=== PATIENT | male | born 1990 | race Caucasian/White ===

== ENCOUNTER 2017-01-31 20:43 | Inpatient (IN) | payer MEDICAID, OTHER ==
--- NOTE | 2017-01-31 22:24 | ED ---
Psych HPI - General Chief Complaint: Psychiatric Symptoms Stated Complaint: Mental Health Time Seen by Provider: 01/31/17 21:20 Source: patient, RN notes reviewed Mode of arrival: ambulatory - History of Present Illness Initial Comments: Patient is a 26-year-old male with a chief complaint of suicidal ideation and depression for the past few days. Patient states that he wants to take multiple pills and drugs order to allow sleep. Patient states that he's been suffering from depression for the past few years however the past few months of an exceptionally hard. Patient states that his mother has from an overdose in november. Patient reports that a few days ago he did have a back of pills that he was planning to take however they did spell and he was unable to take in order to kill himself. Patient denies any homicidal ideations. He denies any auditory or visual hallucinations. He denies any recent drug or alcohol use. - Related Data Home Medications Medication Instructions Recorded Confirmed Sertraline [Zoloft] 100 mg PO DAILY 10/30/16 01/31/17 Gabapentin 800 mg PO TID 01/31/17 01/31/17 QUEtiapine XR [SEROquel XR] 600 mg PO HS 01/31/17 01/31/17 QUEtiapine [SEROquel] 25 mg PO BID 01/31/17 01/31/17 Allergies Allergy/AdvReac Type Severity Reaction Status Date / Time No Known Allergies Allergy Verified 01/31/17 21:47 Review of Systems ROS Statement: Those systems with pertinent positive or pertinent negative responses have been documented in the HPI. ROS Other: All systems not noted in ROS Statement are negative. Past Medical History Past Medical History: Asthma, GERD/Reflux, Liver Disease, Seizure Disorder Additional Past Medical History / Comment(s): Bilateral knee pain,djd hepatitis C, seizure a couple weeks ago which aly believes was due to withdrawal, constipation.DRUG OD IN PAST, History of Any Multi-Drug Resistant Organisms: None Reported Past Surgical History: Hernia Repair, Orthopedic Surgery Additional Past Surgical History / Comment(s): R wrist and arm at age 10 and 18 due to fractures, hernia repair as an . Past Anesthesia/Blood Transfusion Reactions: No Reported Reaction Past Psychological History: Anxiety, Bipolar, Depression, Panic Disorder Additional Psychological History / Comment(s): Pt's elvie states that pt has had suicide attempts in the past. He lived with her and their 2 yrs old son until 05/25/16. Aly states she had to ask him to move out due to his polysubstance abuse and at that time he had used heroin and crack. Since leaving the home she states he has been bouncing into mental hospitals and rehab facilities. She states he has past abused benzos, neurontin, seroquel and recently his suboxone for heroin addiction. Smoking Status: Current every day smoker Past Alcohol Use History: None Reported Additional Past Alcohol Use History / Comment(s): Patient is a smoker of one pack per day since he was 16 years of age. He has history of prescription drug abuse, heroin addiction currently on Suboxone. He is single. He has one son that is 2 years old and healthy with no major medical problems. Past Drug Use History: None Reported Additional Drug Use History / Comment(s): Pt has been in rehab facility in past for addictions. - Past Family History Father Additional Family Medical History / Comment(s): Father at age 32 in a motor vehicle accident. He has history of drug abuse. Mother Additional Family Medical History / Comment(s): Mother is alive at age 39 with history of thyroid cancer. Brother(s) Additional Family Medical History / Comment(s): Patient has 3 siblings with no major medical problems. One sibling is in detention. General Exam - General Exam Comments Initial Comments: Pleasant 26-year-old male. No acute distress. Limitations: no limitations General appearance: alert, in no apparent distress Head exam: Present: atraumatic, normocephalic, normal inspection Eye exam: Present: normal appearance, PERRL, EOMI. Absent: scleral icterus, conjunctival injection, periorbital swelling ENT exam: Present: normal exam, mucous membranes moist Neck exam: Present: normal inspection. Absent: tenderness, meningismus, lymphadenopathy Respiratory exam: Present: normal lung sounds bilaterally. Absent: respiratory distress, wheezes, rales, rhonchi, stridor Cardiovascular Exam: Present: regular rate, normal rhythm, normal heart sounds. Absent: systolic murmur, diastolic murmur, rubs, gallop, clicks GI/Abdominal exam: Present: soft, normal bowel sounds. Absent: distended, tenderness, guarding, rebound, rigid Extremities exam: Present: normal inspection, full ROM, normal capillary refill. Absent: tenderness, pedal edema, joint swelling, calf tenderness Back exam: Present: normal inspection Neurological exam: Present: alert, oriented X3, CN II-XII intact Psychiatric exam: Present: normal affect, normal mood Skin exam: Present: warm, dry, intact, normal color. Absent: rash Course Vital Signs 01/31/17 21:13 Temperature 98.1 F Pulse Rate 103 H Respiratory 16 Rate Blood Pressure 137/82 O2 Sat by Pulse 90 L Oximetry Medical Decision Making - Medical Decision Making Patient is a 26-year-old male with a chief complaint of suicidal ideation and depression for the past few days. Patient states that he wants to take multiple pills and drugs order to allow sleep. Patient states that he's been suffering from depression for the past few years however the past few months of an exceptionally hard. Patient states that his mother has from an overdose in November. Patient's urine drug screen is positive for cocaine, TCAs , benzodiazepines. Patient's breath while test is negative. Patient is medically clear this time for EPS evaluation. Patient will be admitted at this time for inpatient psychiatric evaluation. - Lab Data Lab Results 01/31/17 Range/Units 21:25 Urine Opiates Screen Not Detected (NotDetected) Ur Oxycodone Screen Not Detected (NotDetected) Urine Methadone Screen Not Detected (NotDetected) Ur Propoxyphene Screen Not Detected (NotDetected) Ur Barbiturates Screen Not Detected (NotDetected) U Tricyclic Antidepress Detected H (NotDetected) Ur Phencyclidine Scrn Not Detected (NotDetected) Ur Amphetamines Screen Not Detected (NotDetected) U Methamphetamines Scrn Not Detected (NotDetected) U Benzodiazepines Scrn Detected H (NotDetected) Urine Cocaine Screen Detected H (NotDetected) U Marijuana (THC) Screen Detected H (NotDetected) Disposition Clinical Impression: Suicidal ideation, Substance abuse Disposition: HOME SELF-CARE Condition: Stable Time of Disposition: 23:21
[2017-02-01 00:19] VITALS: BMI 27.1
[2017-02-01] MEDS ORDERED: MAGNESIUM HYDROXIDE 2,400 MG/10 ML CUP PO PRN (00:57)
[2017-02-01] MEDS ORDERED: MAG HYDROX/AL HYDROX/SIMETH 30 ML CUP PO PRN (00:57)
[2017-02-01] MEDS ORDERED: QUEtiapine 25 MG TAB PO SCH (09:00)
[2017-02-01] MEDS: GABAPENTIN 400 MG CAP PO SCH ×3 (09:45→20:18)
[2017-02-01] MEDS: NICOTINE 21MG/24HR PATCH TRANSDERM SCH (09:45)
[2017-02-01] MEDS: SERTRALINE 100 MG TAB PO SCH (09:45)
[2017-02-01] MEDS: ACETAMINOPHEN TAB 325 MG TAB PO PRN ×3 (09:46→20:19)
[2017-02-01 09:51] LABS: Basophils % (A) 0 %; CH 29.7; Eosinophils # (A) 0.3 k/uL (0-0.7); Eosinophils % (A) 4 %; HCT 45.2 % (39.0-53.0); HGB 14.8 gm/dL (13.0-17.5); Luc # (Auto) 0.15; Luc % (Auto) 2; Lymphocytes # (A) 0.9 k/uL (1.0-4.8); Lymphocytes % (A) 12 %; MCH 29.6 pg (25.0-35.0); MCHC 32.7 g/dL (31.0-37.0); MCV 90.6 fL (80.0-100.0); Mean Platelet Volume 6.7; Monocytes # (A) 0.4 k/uL (0-1.0); Monocytes % (A) 5 %; Neutrophils # (A) 5.6 k/uL (1.3-7.7); Neutrophils % (A) 77 %; RDW 14.3 % (11.5-15.5); WBC 7.3 k/uL (3.8-10.6); WBC (Perox) 7.93
[2017-02-01 10:07] LABS: ALT 223 U/L (21-72); AST 123 U/L (17-59); Alkaline Phosphatase 90 U/L (38-126); Anion Gap 10 mmol/L; Blood Urea Nitrogen 14 mg/dL (9-20); Carbon Dioxide 22 mmol/L (22-30); Chloride 110 mmol/L (98-107); Glucose 92 mg/dL (74-99); Non-African American GFR(MDRD) >60 (>60 ml/min/1.73 sqM); Potassium 4.3 mmol/L (3.5-5.1); Sodium 142 mmol/L (137-145); Total Bilirubin 0.6 mg/dL (0.2-1.3); Total Protein 6.7 g/dL (6.3-8.2)
--- NOTE | 2017-02-01 11:18 | P.HP ---
Psychiatric H&P - . H&P Date: 02/01/17 History & Physical: IDENTIFYING DATA: Mr. Lobo is 26-year-old male known to this unit from prior admissions. HISTORY OF PRESENT ILLNESS: He presented to the ED with complaints of depression and suicidal ideation. He was thinking about overdosing on heroin and prescription medications. He has been feeling more depressed since his girlfriend asked him to leave her home "about a week or so ago. ... She can tell when I'm using. I slipped. I used heroin just one time. She knew and asked me to get out." Since he left his girlfriend's home he has been homeless. He stated that he has slept in his car and spent "couple nights" with friends. He is feeling hopeless and helpless; "I don't want to live. ... I am letting people down. Letting myself down." He talked about his struggle with maintaining abstinence from heroin. An additional stress was the of his mother in November 2016. She had a history of opiate use disorder. She was clean for one year. She used heroin "one time and overdosed." He continues to grieve the of his mother. "We were close. ... My father when I was 14 years old. She raised me and my brothers alone." He also complained of sedation from the daytime dose of Seroquel. He complained of continued anxiety and asked if there was "another medication" to treat his subjective anxiety. I explained that I am reluctant to prescribe him a narcotic medication for treatment of anxiety given his history of abuse. PAST PSYCHIATRIC HISTORY: This is his fourth admission in the last 12 months; the last was in September 2016 when he was transferred from the medical unit following an intentional overdose of Suboxone and clonazepam. Subsequent to his last psychiatric hospitalization he was admitted to the ICU in September 2016 when he presented to the emergency room lethargic. His urine drug screen was positive for opiates, tricyclic antidepressants and benzodiazepines. He recovered with conservative measures. When he became conscious he signed himself out of the hospital AGAINST MEDICAL ADVICE. He first received mental health treatment at age 15. He describes feeling depressed after the of his father from multiple motor vehicle accident. He was admitted to [facility] when he was a teenager. He has a purported history of a bipolar illness but the changes mood are coincident with his abuse of drugs. We referred him to community mental health after his last discharge. He receives psychiatric and case management services. His outpatient medications included Zoloft 100 mg daily, Seroquel XR 600 mg at bedtime and Seroquel 25 mg twice a day. PAST MEDICAL HISTORY: According to the EMR, he has history of asthma, GERD and hepatitis C. ALLERGIES: NO KNOWN DRUG ALLERGIES SUBSTANCE USE HISTORY: . He has a history of abuse heroin, cocaine, crack cocaine, or opioid medications, hallucinogenic's and marijuana. His drugs of choice are heroin and benzodiazepines (particularly Xanax). He denied use of alcohol. He he has participated in several substance abuse treatment programs; the last was at [place] in May 2016. Has been treated with Suboxone and reported abstinence from heroin with Suboxone. He denied participation in a methadone maintenance program. He attends Alcoholics Anonymous between 3 and 5 times per week. He has a sponsor but does not have a home group. His urine drug screen was positive for tricyclic antidepressants, cocaine, benzodiazepines and cannabinoids. He admitted to use of Xanax and marijuana but denied recent use of cocaine. Tobacco use: One pack of cigarettes per day FAMILY PSYCHIATRIC/SUBSTANCE USE HISTORY: His mother had history of opioid use disorder and from an overdose in November 2016. There is a family history of substance use and mood disorders. LEGAL HISTORY: He is not on probation, parole or has pending charges. He denied prior involvement with the legal system. . SOCIAL HISTORY: His born and raised in [place]. He went to school to the 11th grade but obtained his GED. He is not . He has a 2-year-old son. She has 3 brothers. His father when he was 14 years old from a motor vehicle accident. His mother at a history of opiate use disorder and from a heroin overdose in November 2016. 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 He denied a history of physical, emotional or sexual abuse. He is the oldest in a sibship of 3 brothers. One brother is currently in senior living, another brother is at the [facility] for violation of probation and the youngest, age 12, lives with his grandparents. He is currently homeless but believes he may be a return to his girlfriend's home after discharge. MENTAL STATUS EXAM: He presented as a casually groomed well-developed well- nourished male who was pleasant on approach. He made eye contact and appeared to attend to the interview. He had no distinguishing features or prominent physical abnormalities. He had a blunted facial expression. He was alert and oriented to person, place and time. He had psychomotor retardation but no abnormal involuntary movements. His gait was slow but steady. His speech was spontaneous with decreased rate, rhythm and volume. He had no articulation difficulties. His affect was depressed but stable and appropriate. He did not appear restless, anxious or irritable. He denied current suicidal ideation or wishes. He denied homicidal ideation. He expressed depressive cognitions including hopelessness, helplessness and worthlessness. He ruminated about his substance use problems and the consequences of his substance use. He did not express phobias, ideas reference or paranoid ideation. His thinking was abstract and associations were coherent and logical. He denied hallucinations did not appear to be responding to internal stimuli. Global impression of intellect is average. He is aware of his illness and need for mental health treatment. STRENGTHS: Stable employment, supportive family, involved with mental health services, involved with community recovery. WEAKNESSES: Substance use disorder, lack of stable housing . IMPRESSION: He is a 26-year-old single male who has a history of opiate and sedative hypnotic use disorder. He has had multiple psychiatric hospitalization related to substance use disorder, depression and suicidal ideation. He presented to unit with complaints of depression and suicidal ideation in the context of specific stresses. His mother from heroin overdose in November 2016, his girlfriend asked him to leave their home when he relapsed to heroin and he has been homeless since he left his girlfriend's home. She describes thoughts of subjective anxiety, suicide, hopelessness, helplessness and worthlessness. He denies suicidal plan or intent. He should be treated on an inpatient basis with a combination of psychopharmacology and multimodal therapy. PRINCIPLE DIAGNOSIS: Unspecified depressive disorder, rule out a depressive disorder recurrent, opiate use disorder, benzodiazepine use disorder, lack of adequate housing, bereavement RECOMMENDATION: Continue inpatient hospitalization due to depression and suicidal ideation. Suicide precautions with 15 minute checks. Continue Zoloft 100 mg daily and titrated according to clinical response and tolerance. Continue Seroquel XL 600 mg at bedtime. Discontinue Seroquel 25 mg twice a day due to complaints of sedation. Avoid prescription of narcotic medications but particularly opiates and benzodiazepines. Begin a trial of BuSpar 7.5 mg by mouth twice a day and titrated according to therapeutic response and tolerance.. Social work to coordinate family meeting and aftercare services. Encourage participation in therapeutic groups and activities. Evaluate clinical status response to treatment on a daily basis. ALLERGIES Allergy/AdvReac Type Severity Reaction Status Date / Time No Known Allergies Allergy Verified 02/01/17 01:07 Vital Signs Temp 97.0 F L 02/01/17 00:00 Pulse 99 02/01/17 00:00 Resp 16 02/01/17 00:00 BP 125/81 02/01/17 00:00 Pulse Ox 98 01/31/17 23:23 Intake & Output 01/31/17 02/01/17 02/01/17 18:59 06:59 18:59 Weight 93.1 kg Laboratory Last Values Urine Opiates Screen Not Detected (NotDetected) 01/31/17 21:25 Ur Oxycodone Screen Not Detected (NotDetected) 01/31/17 21:25 Urine Methadone Screen Not Detected (NotDetected) 01/31/17 21:25 Ur Propoxyphene Screen Not Detected (NotDetected) 01/31/17 21:25 Ur Barbiturates Screen Not Detected (NotDetected) 01/31/17 21:25 U Tricyclic Antidepress Detected (NotDetected) H 01/31/17 21:25 Ur Phencyclidine Scrn Not Detected (NotDetected) 01/31/17 21:25 Ur Amphetamines Screen Not Detected (NotDetected) 01/31/17 21:25 U Methamphetamines Scrn Not Detected (NotDetected) 01/31/17 21:25 U Benzodiazepines Scrn Detected (NotDetected) H 01/31/17 21:25 Urine Cocaine Screen Detected (NotDetected) H 01/31/17 21:25 U Marijuana (THC) Screen Detected (NotDetected) H 01/31/17 21:25 02/01/17 08:11 02/01/17 09:43 02/01/17 10:34 02/01/17 11:11
--- NOTE | 2017-02-01 12:42 | P.CONS ---
History of Present Illness - Reason for Consult Consult date: 02/01/17 Medical management - History of Present Illness This is a 26-year-old male. He does not have a primary care physician. He has a past medical history for anxiety, bipolar, panic disorder, tobacco use and dependence, drug abuse. Patient states that he is a heroin addict and he started doing heroin with his mom and his mom recently from a drug overdose. He states he has been clean but is relapsed.he states he uses cocaine on Saturday by starting. He states he has not used alcohol long time. He is feeling very anxious and jittery. Urine drug screen was positive for tricyclic antidepressants, benzodiazepines, cocaine and marijuana. Review of Systems All systems: negative Constitutional: Denies chills, Denies fever Eyes: denies blurred vision, denies pain Ears, nose, mouth and throat: Denies headache, Denies sore throat Cardiovascular: Denies chest pain, Denies shortness of breath Respiratory: Denies cough Gastrointestinal: Denies abdominal pain, Denies diarrhea, Denies nausea, Denies vomiting Musculoskeletal: Denies myalgias Integumentary: Denies pruritus, Denies rash Neurological: Denies numbness, Denies weakness Psychiatric: Reports anxiety, Reports depression Endocrine: Denies fatigue, Denies weight change Past Medical History Past Medical History: Asthma, GERD/Reflux, Liver Disease, Seizure Disorder Additional Past Medical History / Comment(s): Bilateral knee pain,djd hepatitis C, seizure a couple weeks ago which aly believes was due to withdrawal, constipation.DRUG OD IN PAST, History of Any Multi-Drug Resistant Organisms: None Reported Past Surgical History: Hernia Repair, Orthopedic Surgery Additional Past Surgical History / Comment(s): R wrist and arm at age 10 and 18 due to fractures, hernia repair as an infant. Past Anesthesia/Blood Transfusion Reactions: No Reported Reaction Past Psychological History: Anxiety, Bipolar, Depression, Panic Disorder Additional Psychological History / Comment(s): Pt's aly states that pt has had suicide attempts in the past. He lived with her and their 2 yrs old son until 05/25/16. Aly states she had to ask him to move out due to his polysubstance abuse and at that time he had used heroin and crack. Since leaving the home she states he has been bouncing into mental hospitals and rehab facilities. She states he has past abused benzos, neurontin, seroquel and recently his suboxone for heroin addiction. Smoking Status: Current every day smoker Past Alcohol Use History: None Reported Additional Past Alcohol Use History / Comment(s): Patient is a smoker of one pack per day since he was 16 years of age. He has history of prescription drug abuse, heroin addiction no longer on Suboxone. He is single. He has one son that is 2 years old and healthy with no major medical problems. Past Drug Use History: None Reported Additional Drug Use History / Comment(s): Pt has been in rehab facility in past for addictions. - Past Family History Father Additional Family Medical History / Comment(s): Father at age 32 in a motor vehicle accident. He has history of drug abuse. Mother Additional Family Medical History / Comment(s): Mother at age 42 from drug overdose with history of heroin abuse and thyroid cancer. Brother(s) Additional Family Medical History / Comment(s): Patient has 3 siblings with no major medical problems. One sibling is in senior living. Medications and Allergies Home Medications Medication Instructions Recorded Confirmed Type Sertraline [Zoloft] 100 mg PO DAILY 10/30/16 02/01/17 History Gabapentin 800 mg PO TID 01/31/17 02/01/17 History QUEtiapine XR [SEROquel XR] 600 mg PO HS 01/31/17 02/01/17 History QUEtiapine [SEROquel] 25 mg PO BID 01/31/17 02/01/17 History Allergies Allergy/AdvReac Type Severity Reaction Status Date / Time No Known Allergies Allergy Verified 02/01/17 01:07 Physical Exam Vitals: Vital Signs Temp Pulse Pulse Resp BP BP Pulse Ox 02/01/17 00:00 97.0 F L 99 16 125/81 01/31/17 23:23 96.9 F L 98 18 120/63 98 Intake and Output 01/31/17 02/01/17 02/01/17 22:59 06:59 14:59 Other: Weight 93.1 kg Gen: This is a 26-year-old male. He appears to be in no acute distress. He is cooperative. HEENT: Head is atraumatic, normocephalic. Pupils equal, round. Sclerae is anicteric. NECK: Supple. No JVD. No lymphadenopathy. No thyromegaly. LUNGS: Clear to auscultation. No wheezes or rhonchi. No intercostal retractions. HEART: Regular rate and rhythm. No murmur. ABDOMEN: Soft. Bowel sounds are present. No masses. No tenderness. EXTREMITIES: No pedal edema. No calf tenderness. NEUROLOGICAL: Patient is awake, alert and oriented x3. Cranial nerves 2 through 12 are grossly intact. Results CBC & Chem 7: 02/01/17 09:10 02/01/17 09:10 Labs: Abnormal Lab Results - Last 24 Hours (Table) 02/01/17 Range/Units 09:10 Lymphocytes # 0.9 L (1.0-4.8) k/uL Assessment and Plan Plan: 1. Depression recurrent in a patient with history of bipolar and anxiety. Patient admitted to the mental health unit. Continue current plan of care. 2. Polysubstance abuse. Continue as in #1. 3. Tobacco use and dependence. Continue nicotine patch. 4. Narcotic abuse. Impression and plan of care have been directed as dictated by the signing physician. Frances Petersen nurse practitioner acting as scribe for signing physician. Time with Patient: Greater than 30
[2017-02-01] MEDS: busPIRone HCl 5 MG TAB PO SCH ×2 (13:11→20:14)
[2017-02-01] MEDS: LORazepam 1 MG TAB PO PRN ×2 (14:45→22:00)
[2017-02-01] MEDS: QUEtiapine XR 200 MG TAB.ER.24H PO SCH (20:16)
[2017-02-02] MEDS: SERTRALINE 100 MG TAB PO SCH (08:52)
[2017-02-02] MEDS: NICOTINE 21MG/24HR PATCH TRANSDERM SCH (08:52)
[2017-02-02] MEDS: busPIRone HCl 5 MG TAB PO SCH (08:52)
[2017-02-02] MEDS: GABAPENTIN 400 MG CAP PO SCH ×3 (08:52→20:27)
[2017-02-02] MEDS: LORazepam 1 MG TAB PO PRN ×2 (08:53→17:22)
--- NOTE | 2017-02-02 11:54 | P.PN ---
Progress Note - Text Interval history: Patient is seen in cross coverage today again for Dr. Ojeda. Patient was admitted to hospital for depression and substance use disorder He came to my office asking to be seen because "I AM HAVING VERY BAD ANXIETY ,I NEED TO TAKE ATIVAN EVERY FOUR HOURS",said that his anxiety is getting worse after he called his girlfriend this morning and she told him that she is leaving and taking their 2.5 years old son,"I AM SCARED THAT SHE WILL NOT ALLOWING ME TO SEE HIM",discussed with him his extensive history of SA and cross addiction ,patient has no insight and he replied "CAN I HAVE XANAX OR LYRICA"Denies any appetite problem ,had trouble falling asleep with Seroquel XR and asking to change it to regular form PER NURSING STAFF:patient slept 6 hours ,drug seeking for Ativan Patient was seen for medical consult :+Hepatitis C Mental status exam: He was dressed in hospital gown ,unshaved He is alert and cooperative with the interview. His speech is fluent, he seems to describe his mood "VERY NERVOUS",rates his depression 7/10 ,anxiety 10/10 He denies any thoughts of harm to self or others. He denies any hallucinations.or other psychotic features ,insight to his SA issue is impaired She does not show any agitation. Plan: Increase Buspar ,limit settings on his drug seeking behavior ,continue rest of meds ,same dose,encourage groups participation
[2017-02-02] MEDS: busPIRone HCl 10 MG TAB PO SCH ×2 (16:14→20:28)
[2017-02-02] MEDS: QUEtiapine XR 200 MG TAB.ER.24H PO SCH (20:30)
[2017-02-03 06:46] VITALS: TEMP 97.6
[2017-02-03] MEDS: busPIRone HCl 10 MG TAB PO SCH ×3 (08:53→21:04)
[2017-02-03] MEDS: NICOTINE 21MG/24HR PATCH TRANSDERM SCH (08:53)
[2017-02-03] MEDS: ACETAMINOPHEN TAB 325 MG TAB PO PRN (08:54)
[2017-02-03] MEDS: SERTRALINE 100 MG TAB PO SCH (08:54)
[2017-02-03] MEDS: GABAPENTIN 400 MG CAP PO SCH ×3 (08:54→21:04)
[2017-02-03] MEDS: LORazepam 1 MG TAB PO PRN ×2 (08:55→16:23)
--- NOTE | 2017-02-03 15:39 | P.PN ---
Progress Note - Text Interval history: Patient is seen in cross coverage today again for Dr. Ojeda. Patient was watching TV and followed me to my office ,he reports decrease in his anxiety and depression as he was able to set future goals : planning to live with grandparent ,going to AA meeting ,will contact his sponsor on daily basis and he will see his [facility] therapist,discussed negative impact of SA on his physical and mental health ,patient verbalized understanding.Patient wants to try Regular Seroquel instead of XR PER NURSING STAFF:patient slept 6 hours ,had initial insomnia,did participate in all groups Patient was seen for medical consult :+Hepatitis C Mental status exam: He was dressed in his clothing ,pleasant ,affect is appropriate ,stated mood "BETTER",denies any psychotic features ,denies any suicidal or homicidal ideation ,his insight to his SA is improving Plan: Change Seroquel to regular one ,continue rest of medications ,same , continue participation in milieu and working on his recovery
[2017-02-03] MEDS ORDERED: QUEtiapine 200 MG TAB PO SCH (21:00)
[2017-02-04 06:37] VITALS: BP 123/68; PULSE 68; RESP 16
[2017-02-04] MEDS: GABAPENTIN 400 MG CAP PO SCH (08:49)
[2017-02-04] MEDS: SERTRALINE 100 MG TAB PO SCH (08:49)
[2017-02-04] MEDS: NICOTINE 21MG/24HR PATCH TRANSDERM SCH (08:49)
[2017-02-04] MEDS: LORazepam 1 MG TAB PO PRN (08:50)
[2017-02-04] MEDS: busPIRone HCl 10 MG TAB PO SCH (08:50)
--- NOTE | 2017-02-04 12:08 | P.DS ---
Providers Date of admission: 01/31/17 23:06 Attending physician: Elan Ojeda MD Consults: 02/01/17 00:57 Consult Physician Routine Consulting Provider: Elis Seymour Consult Reason/Comments: medical management Do you want consulting provider notified?: Yes, Notify in am Primary care physician: Stated None - Discharge Diagnosis(es) (1) Opioid use disorder, severe, dependence Current Visit: Yes Status: Chronic Priority: High (2) Severe benzodiazepine use disorder Current Visit: Yes Status: Chronic Priority: High (3) Suicidal ideation Current Visit: Yes Status: Resolved Priority: Low (4) Depression Current Visit: No Status: Acute Priority: Medium Hospital Course: Mr. Lobo is 26-year-old male known to this unit from prior admissions. He presented to the ED with complaints of depression and suicidal ideation. He was thinking about overdosing on heroin and prescription medications. He has been feeling more depressed since his girlfriend asked him to leave her home "about a week or so ago. ... She can tell when I'm using. I slipped. I used heroin just one time. She knew and asked me to get out." Since he left his girlfriend's home he has been homeless. He stated that he has slept in his car and spent "couple nights" with friends. He is feeling hopeless and helpless; " I don't want to live. ... I am letting people down. Letting myself down." He talked about his struggle with maintaining abstinence from heroin. An additional stress was the of his mother in November 2016. She had a history of opiate use disorder. She was clean for one year. She used heroin "one time and overdosed." He continues to grieve the of his mother. "We were close. ... My father when I was 14 years old. She raised me and my brothers alone." He also complained of sedation from the daytime dose of Seroquel. He complained of continued anxiety and asked if there was "another medication" to treat his subjective anxiety. I explained that I am reluctant to prescribe him a narcotic medication for treatment of anxiety given his history of abuse. This is his fourth admission in the last 12 months; the last was in September 2016 when he was transferred from the medical unit following an intentional overdose of Suboxone and clonazepam. Subsequent to his last psychiatric hospitalization he was admitted to the ICU in September 2016 when he presented to the emergency room lethargic. His urine drug screen was positive for opiates , tricyclic antidepressants and benzodiazepines. He recovered with conservative measures. When he became conscious he signed himself out of the hospital AGAINST MEDICAL ADVICE. He first received mental health treatment at age 15. He describes feeling depressed after the of his father from multiple motor vehicle accident. He was admitted to [facility] when he was a teenager. He has a purported history of a bipolar illness but the changes mood are coincident with his abuse of drugs. [facility]. He receives psychiatric and case management services. His outpatient medications included Zoloft 100 mg daily, Seroquel XR 600 mg at bedtime and Seroquel 25 mg twice a day. He has a history of abuse heroin, cocaine, crack cocaine, or opioid medications , hallucinogenic's and marijuana. His drugs of choice are heroin and benzodiazepines (particularly Xanax). He denied use of alcohol. He he has participated in several substance abuse treatment programs; the last was at [facility] in May 2016. Has been treated with Suboxone and reported abstinence from heroin with Suboxone. He denied participation in a methadone maintenance program. He attends Alcoholics Anonymous between 3 and 5 times per week. He has a sponsor but does not have a home group. His urine drug screen was positive for tricyclic antidepressants, cocaine, benzodiazepines and cannabinoids. He admitted to use of Xanax and marijuana but denied recent use of cocaine. We admitted him to the psychiatric unit under care of this program writer. We provided a biopsychosocial assessment. The [employer] consultant nurse practitioner completed the initial medical history and physical exam. The nurse practitioners diagnoses included polysubstance abuse, depression, tobacco use and dependence and narcotic abuse. We resumed his outpatient medications including gabapentin 800 mg 3 times a day, Seroquel 600 mg at bedtime and Zoloft 100 mg daily. His primary complaint was "severe" and "anxiety. He described subjective feelings of anxiety with minimal objective signs or symptoms. We declined to prescribe scheduled or increased dose of lorazepam getting to his history of abuse of benzodiazepines. He denied a decrease in subjective feelings of anxiety with 25 mg of Seroquel twice a day. He consented to a trial of BuSpar. We titrated dose to 10 mg by mouth 3 times a day with moderate relief of symptoms of anxiety. He participated in therapeutic groups and activities. He posed no management problem and displayed no episodes of behavioral dyscontrol. The social security benefits interviewer arranged for meeting with his grandparents. His grandmother was unaware this admission. She was aware of his problems with drug use. The social security benefits interviewer met with her and the patient during a family meeting. She confirmed that he may return to her home onto was able to find stable employment and independent housing. At the time of discharge she denied suicidal ideation, plan or intent. The social security benefits interviewer arranged [facility]. Patient Condition at Discharge: Stable Plan - Discharge Summary New Discharge Prescriptions: Gabapentin 800 mg PO TID 30 Days Nicotine 21Mg/24Hr Patch [Habitrol] 1 patch TRANSDERM DAILY 14 Days QUEtiapine XR [SEROquel XR] 600 mg PO HS 30 Days Sertraline [Zoloft] 100 mg PO DAILY 30 Days busPIRone HCl [Buspar] 10 mg PO TID 30 Days Discharge Medication List Gabapentin 800 mg PO TID 30 Days 02/04/17 [Rx] Nicotine 21Mg/24Hr Patch [Habitrol] 1 patch TRANSDERM DAILY 14 Days 02/04/17 [Rx ] QUEtiapine XR [SEROquel XR] 600 mg PO HS 30 Days 02/04/17 [Rx] Sertraline [Zoloft] 100 mg PO DAILY 30 Days 02/04/17 [Rx] busPIRone HCl [Buspar] 10 mg PO TID 30 Days 02/04/17 [Rx] Follow up Appointment(s)/Referral(s): [facility], [Other] - 02/06/17 2:00 pm (Perla Santana) [facility] [Outside] - 02/05/17 1:00 pm (Sindhu Granger) None,Stated [Primary Care Provider] - 1 Week Patient Instructions/Handouts: How to Stop Smoking (DC), Depression (DC), Suicide Prevention for Adults (DC) Activity/Diet/Wound Care/Special Instructions: Activity and diet as tolerated. Avoid the use of street drugs and alcohol. Take all medications as prescribed. When you are in need of refills on your medications please contact your medical provider and/or outpatient psychiatrist to have this done. Please go to scheduled outpatient appointments for aftercare. If symptoms return or become worse call the crisis line at [phone] and/or go to the nearest emergency room for an evaluation. Discharge Disposition: HOME SELF-CARE
== END 2017-02-04 13:41 | disposition home or self-care (01) | DRG 881 ==
LOC: EC 20:43 → 3MHU 23:06
PROVIDERS: ADMIT Psychiatry & Neurology Psychiatry; ATTEND Psychiatry & Neurology Psychiatry
DX: F32.9 Major depressive disorder, single episode, unspecified (principal); F11.20 Opioid dependence, uncomplicated; R45.851 Suicidal ideations; F17.200 Nicotine dependence, unspecified, uncomplicated; F13.10 Sedative, hypnotic or anxiolytic abuse, uncomplicated; F41.0 Panic disorder [episodic paroxysmal anxiety]; Z59.0 Homelessness; Z79.899 Other long term (current) drug therapy; Z91.5 Personal history of self-harm
CPT/HCPCS: 80053; 80306; 82075; 84443; 85025; 93005; 99285